=== PATIENT | female | born 1985 | race Caucasian/White ===

== ENCOUNTER 2016-07-31 00:19 | Inpatient (IN) | payer OTHER ==
[2016-07-31] MEDS ORDERED: OLIVE OIL 118 ML BTL ONE (00:38)
[2016-07-31] MEDS ORDERED: AMMONIA AROMATIC 1 EACH AMP IH ONE (00:38)
[2016-07-31] MEDS ORDERED: LIDOCAINE 1% 300 MG/30 ML SDV ONE (00:38)
[2016-07-31] MEDS ORDERED: MISOPROSTOL 200 MCG TAB ONE (00:38)
[2016-07-31] MEDS ORDERED: OXYTOCIN 10 UNIT/ML VIAL ONE (00:38)
[2016-07-31] MEDS ORDERED: TERBUTALINE SULFATE 1 MG/ML VIAL ONE (00:38)
[2016-07-31] MEDS ORDERED: EPSOM SALT 454 GM TP PRN (00:40)
[2016-07-31] MEDS ORDERED: LR 1,000 ML IV PRN (00:40)
[2016-07-31] MEDS ORDERED: OXYTOCIN/RINGERS LACTATE 1,000 ML IV PRN (00:40)
[2016-07-31] MEDS ORDERED: OLIVE OIL 118 ML BTL MISC PRN (00:40)
[2016-07-31] MEDS ORDERED: TERBUTALINE SULFATE 1 MG/ML VIAL IV PRN (00:40)
[2016-07-31 01:17] LABS: % IMMATURE GRANULYOCYTES 0.6 % (0.0-1.1); ABSOLUTE IMMATURE GRANULOCYTES 0.09 10^3/uL (0.00-0.10); ADD DIFF? NO; ADD MORPH? NO; ADD SCAN? NO; ATYPICAL LYMPHOCYTE FLAG 0 (0-99); FRAGMENT RBC FLAG 0 (0-99); HEMATOCRIT 38.8 % (38.0-47.0); HEMOGLOBIN 13.7 g/dL (12.6-16.3); LEFT SHIFT FLG 0 (0-99); LIPEMIA HEMOLYSIS FLAG 90 (0-99); MEAN CELL HEMOGLOBIN 31.4 pg (27.9-34.1); MEAN CELL HEMOGLOBIN CONCENTR. 35.3 g/dL (32.4-36.7); MEAN CELL VOLUME 88.8 fL (81.5-99.8); MEAN PLATELET VOLUME 10.8 fL (8.7-11.7); PLATELET CLUMPS FLAG 0 (0-99); PLATELET COUNT 216 10^3/uL (150-400); RED BLOOD CELL COUNT 4.37 10^6/uL (4.18-5.33); RED CELL DISTRIBUTION WIDTH 12.7 % (11.5-15.2)
[2016-07-31] MEDS ORDERED: fentaNYL 100 MCG/2 ML INJ ONE (01:36)
[2016-07-31] MEDS ORDERED: fentaNYL 2MCG/ML/BUP 0.1% RTU 100 ML BAG EP ONE (01:36)
[2016-07-31] MEDS ORDERED: BUPIVACAINE 0.25% 30 ML SDV ONE (01:36)
[2016-07-31] MEDS ORDERED: PHENYLEPHRINE HCL 100 MCG/ML SYR ONE (01:37)
--- NOTE | 2016-07-31 01:39 | GHP ---
[f rep st] PREOP HISTORY AND PHYSICAL DATE OF ADMISSION: 07/31/2016 ADMITTING DIAGNOSIS: Intrauterine at 39-4/7 weeks gestation with spontaneous labor and sp ontaneous rupture of the membranes. HISTORY OF PRESENT ILLNESS: The patient is a 31-year-old, 1, para 0, with a last menstrual period of 10/22/2015, and an EDC of 08/04/2016, which was set by a 7-week ultrasound. The patient h as had good care at [facility] since registration at 8 weeks, and she has had an uncomplicated course. The patient reports mild bleeding and lose of a mucous plug this aft ernoon. She began having strong contractions at approximately 7:30 p.m. at night, that were increas ing in intensity to every 5 minutes by approximately 9:30 p.m. At 11:40 p.m., she had spontaneous r upture of the membranes for clear fluid, and the contractions had also increased in intensity. Upon evaluation at Labor and Delivery, heart tones are 140s and reactive, she is renee every 4-5 minutes, and her cervix is 4, 90, - 2, and she is grossly ruptured for clear fluid. She will b e admitted for active labor management. OBSTETRICAL HISTORY: The patient has no past obstetrical history. This is her first . PAST GYNECOLOGICAL HISTORY: She has a normal past gynecological history. She had a normal menstrua l triad with menarche at age 15, interval of 30-35 days, length of 4 days. Her left menstrual perio d was 10/22/2015, but ultrasound changed the due date by 6 days. She does have a history of an abno rmal Pap and a colposcopy in 2008. No treatment was done and negative Paps since. No history of an y STDs. 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 PAST SURGICAL HISTORY: Significant for a breast augmentation in 2010. ALLERGIES: She is allergic to sulfa. It gives her chancre sores. MEDICATIONS: Only vitamins. LABORATORY DATA: She is A positive, antibody negative, RPR nonreactive, rubella immune, and hepatit is negative. HIV negative, cystic fibrosis, SMA, and fragile X negative. Pap normal. Gonorrhea an d chlamydia normal. Verifi normal. AFP negative. One-hour GTT 98, and GBS was negative. SOCIAL HISTORY: She is . She lives with her , Damien. She works as a hay farmer. She denies tobacco, alcohol, and drug use. FAMILY HISTORY: Father has chronic hypertension. Maternal grandfather has adult-onset diabetes. S davi has superior mesenteric artery syndrome. Paternal uncle had leukemia. Father had prostate ca ncer. Paternal grandfather and maternal grandmother had lung cancer, and a cousin of breast ca ncer at age 42. The patient has also had recurrent UTIs in this . REVIEW OF SYSTEMS: Significant today for contraction pain, spontaneous rupture of the membranes, bu t she also had an episode of nausea and vomiting upon presentation to Labor and Delivery. Other jailyn n normal labor symptoms, she has a negative review of symptoms. OBJECTIVE: She is afebrile. Vital signs are stable. heart tones 140s. She is renee e very 4-5 minutes. Cervix is 4, 90%, -2. She is grossly ruptured. ASSESSMENT AND PLAN: 31-year-old, 1, para 0, at 39-4/7 weeks gestation with spontaneous lab or for active labor management. The patient desires an epidural for pain control at this time. /[id number]/MODL
[2016-07-31 01:50] LABS: ALANINE AMINOTRANSFERASE 33 IU/L (9-52); ASPARTATE AMINOTRANSFERASE 27 IU/L (14-46); BILIRUBIN,TOTAL 0.6 mg/dL (0.1-1.4); BILIRUBIN-CONJUGATED 0.4 mg/dL (0.0-0.5); BILIRUBIN-UNCONJUGATED 0.2 mg/dL (0.0-1.1); CREATININE 0.7 mg/dL (0.6-1.0); GLOMERULAR FILTRATION RATE > 60; LACTATE DEHYDROGENASE 526 IU/L (313-618); URIC ACID 6.1 mg/dL (2.5-6.8)
[2016-07-31] MEDS ORDERED: METOCLOPRAMIDE 10 MG/2 ML VIAL IVP PRN (02:22)
[2016-07-31] MEDS ORDERED: PHENYLEPHRINE HCL 100 MCG/ML SYR IVP PRN (02:22)
[2016-07-31] MEDS ORDERED: ONDANSETRON 4 MG/2 ML VIAL IVP PRN (02:22)
[2016-07-31] MEDS ORDERED: fentaNYL 2MCG/ML/BUP 0.1% RTU 100 ML EP SCH (02:30)
[2016-07-31] MEDS ORDERED: LR 500 ML IV SCH (02:30)
[2016-07-31] MEDS ORDERED: HYDROCODONE/APAP 5/325 TAB PO PRN (04:03)
[2016-07-31] MEDS ORDERED: HYDROCORTISONE 0.5% CREAM TP PRN (04:03)
[2016-07-31] MEDS ORDERED: SIMETHICONE 80 MG TAB CHEW PO PRN (04:03)
--- NOTE | 2016-07-31 04:09 | OBDEL ---
Info Type: Vaginal GBS+: No Indications for Delivery: Spontaneous Labor Vaginal Delivery - Labor and Delivery Onset of Contractions Date: 07/30/16 Onset of Contractions Time: 19:00 Onset of Contractions Type: Spontaneous Rupture of Membranes Date: 07/30/16 Rupture of Membranes Time: 23:40 Rupture of Membranes Type: Spontaneous Amniotic Fluid Color: Clear Dilation Complete Date: 07/31/16 Dilation Complete Time: 03:21 Placenta Delivery Date: 07/31/16 Placenta Delivery Time: 03:51 Total Hours of Labor: 8 Laceration: 2nd Degree Repair: 3-0, Vicryl Vaginal Sponge Count Correct: Yes Vaginal Needle Count Correct: Yes Vaginal Sweep Performed: Yes EBL: 150 Delivery Events: None - Medications Labor Augmentation/Induction Methods Used: None [place] Delivery Date: 07/31/16 Delivery Time: 03:47 TRENT: 08/04/16 Gestational Age: 39 week(s) and 3 day(s) Sex of : Male Score (1 Min): 8 Score (5 Min): 8 ICD10 Worksheet Patient Problems: Problems Problem Status Onset spontaneous labor with term delivery Acute Active labor at term Acute - ICD10 Problem Qualifiers (1) spontaneous labor with term delivery (2) Active labor at term
[2016-07-31] MEDS: IBUPROFEN 600 MG TAB PO PRN ×3 (05:37→19:04)
[2016-07-31] MEDS: DOCUSATE SODIUM 100 MG CAP PO PRN ×2 (10:45→19:04)
--- NOTE | 2016-07-31 15:16 | OBPP ---
Progress Note Assessment/Plan: Assessment: 31 y/o PPD#1 s/p doing well. Plan: support, routine PPC. 07/31/16 15:16 Subjective: Pt is doing well today. She has min perineal soreness and cramping controlled with Ibuprofen. She is ambulating, voiding and has min lochia. They are working on breast feeding and baby is latching. Objective: 07/31/16 01:00 07/31/16 01:00 Patient ABO/Rh A POSITIVE 07/31/16 01:00 Uric Acid 6.1 mg/dL (2.5-6.8) 07/31/16 01:00 Total Bilirubin 0.6 mg/dL (0.1-1.4) 07/31/16 01:00 Conjugated Bilirubin 0.4 mg/dL (0.0-0.5) 07/31/16 01:00 Unconjugated Bilirubin 0.2 mg/dL (0.0-1.1) 07/31/16 01:00 AST 27 IU/L (14-46) 07/31/16 01:00 ALT 33 IU/L (9-52) 07/31/16 01:00 Lactate Dehydrogenase 526 IU/L (313-618) 07/31/16 01:00 Temp Pulse Resp BP Pulse Ox 36.6 C 76 16 121/74 H 07/31/16 08:00 07/31/16 08:00 07/31/16 08:00 07/31/16 08:00 Uterine Position/Fundal Height: Umbilicus -2 Uterine Tone: Firm Physical Exam - Physical Exam General Appearance: WD/WN, alert, no apparent distress Neck: non-tender, full range of motion, supple Respiratory: chest non-tender, lungs clear, normal breath sounds Cardiac/Chest: regular rate, rhythm Abdomen: normal bowel sounds Extremities: swelling (no), Tyler's sign (neg)
[2016-07-31] MEDS: ACETAMINOPHEN 325 MG TAB PO PRN (23:21)
[2016-08-01] MEDS: IBUPROFEN 600 MG TAB PO PRN ×4 (01:21→20:07)
[2016-08-01] MEDS: ACETAMINOPHEN 325 MG TAB PO PRN ×2 (03:55→13:16)
[2016-08-01] MEDS ORDERED: SUCROSE 1 EA UDL ONE (04:03)
[2016-08-01 09:10] VITALS: O2SAT 95
--- NOTE | 2016-08-01 10:48 | OBPP ---
Progress Note Assessment/Plan: Assessment: well pain well managed vs wnl ff@u scant rubra lochia perineum approximated voiding without difficulty Plan:pp day 1 expectant management 08/01/16 10:46 Subjective: doing well. PAin well managed, well. Voiding without difficulty Objective: 07/31/16 01:00 07/31/16 01:00 Patient ABO/Rh A POSITIVE 07/31/16 01:00 Uric Acid 6.1 mg/dL (2.5-6.8) 07/31/16 01:00 Total Bilirubin 0.6 mg/dL (0.1-1.4) 07/31/16 01:00 Conjugated Bilirubin 0.4 mg/dL (0.0-0.5) 07/31/16 01:00 Unconjugated Bilirubin 0.2 mg/dL (0.0-1.1) 07/31/16 01:00 AST 27 IU/L (14-46) 07/31/16 01:00 ALT 33 IU/L (9-52) 07/31/16 01:00 Lactate Dehydrogenase 526 IU/L (313-618) 07/31/16 01:00 Temp Pulse Resp BP Pulse Ox 36.4 C 63 16 121/74 H 95 08/01/16 09:09 08/01/16 09:09 08/01/16 09:09 08/01/16 09:09 08/01/16 09:09 Uterine Position/Fundal Height: At Umbilicus Uterine Tone: Firm Physical Exam - Physical Exam General Appearance: WD/WN, alert, no apparent distress Abdomen: other (ff@u) Extremities: Tyler's sign (negative bilaterally) DTR- Lower Extremities: Knee (R): 1+, Knee (L): 1+ (no clonus) Skin: normal color, warm/dry Neuro/Psych: no motor/sensory deficits, alert, normal mood/affect, oriented x 3
[2016-08-01] MEDS: DOCUSATE SODIUM 100 MG CAP PO PRN (13:16)
[2016-08-02] MEDS: IBUPROFEN 600 MG TAB PO PRN ×2 (02:21→09:54)
[2016-08-02 09:16] VITALS: BP 130/84; PULSE 66; RESP 17; TEMP 97.6
[2016-08-02] MEDS: DOCUSATE SODIUM 100 MG CAP PO PRN (09:54)
--- NOTE | 2016-08-02 10:46 | OBPP ---
Progress Note Assessment/Plan: Assessment: 31 y/o PPD#3 s/p doing well. Plan: D/c home today with Ibuprofen, APNO cream to nipples. Follow-up @ [facility] 4 and 6 weeks. 07/31/16 15:16 08/02/16 10:45 Subjective: Pt is doing well today. She has good pain control, cramping and perineal pain with Ibuprofen. She has sore and painful nipples and is working on breast feeding. She has min lochia and is ambulating and nursing well. She is ready to d/c home. Objective: 07/31/16 01:00 07/31/16 01:00 Patient ABO/Rh A POSITIVE 07/31/16 01:00 Uric Acid 6.1 mg/dL (2.5-6.8) 07/31/16 01:00 Total Bilirubin 0.6 mg/dL (0.1-1.4) 07/31/16 01:00 Conjugated Bilirubin 0.4 mg/dL (0.0-0.5) 07/31/16 01:00 Unconjugated Bilirubin 0.2 mg/dL (0.0-1.1) 07/31/16 01:00 AST 27 IU/L (14-46) 07/31/16 01:00 ALT 33 IU/L (9-52) 07/31/16 01:00 Lactate Dehydrogenase 526 IU/L (313-618) 07/31/16 01:00 Temp Pulse Resp BP Pulse Ox 36.4 C 66 17 130/84 H 95 08/02/16 09:14 08/02/16 09:14 08/02/16 09:14 08/02/16 09:14 08/02/16 09:14 Uterine Position/Fundal Height: Umbilicus -2 Uterine Tone: Firm Physical Exam - Physical Exam General Appearance: WD/WN, alert, no apparent distress Neck: non-tender, full range of motion, supple Respiratory: chest non-tender, lungs clear, normal breath sounds Cardiac/Chest: regular rate, rhythm Abdomen: normal bowel sounds Extremities: swelling (no), Tyler's sign (neg)
--- NOTE | 2016-08-02 10:52 | OBGCSDC ---
General Delivery Information - General Info : 1 Para: 1 Delivery Physician/CNM: Iram Beasley Admission Date: 07/30/16 Labs: Patient ABO/Rh A POSITIVE 07/31/16 01:00 Hct 38.8 % (38.0-47.0) 07/31/16 01:00 Vaginal - Diagnosis Labor: Spontaneous Rupture of Membranes Type: Spontaneous Amniotic Fluid Color: Clear Laceration: 2nd Degree Repair: 3-0, Vicryl Delivery Events: None - Operations/Procedures L&D Analgesia/Anesthesia Type: Epidural - Hospital Course Antepartum: normal antepartum course Intrapartum: spontaneous labor, epidural AROM, : sore nipples needing APNO cream - Delivery L&D Analgesia/Anesthesia Type: Epidural [place] Data [place] Delivery Date: 07/31/16 Delivery Time: 03:47 TRENT: 08/04/16 Gestational Age: 39 week(s) and 5 day(s) Sex of : Male [place] Weight (gm): 3150 g Score (1 Min): 8 Score (5 Min): 8 Discharge Information - Discharge Information Discharge Medications: Ibuprofen, Other (Specify) (APNO cream) Condition: Good Instruction/Follow Up: Six Weeks Discharge Physician/KENNY: Iram Beasley
== END 2016-08-02 15:35 | disposition home or self-care (01) | DRG 775 ==
LOC: FLD 00:19 → OBSVTOIN 00:19 → FOB 06:28
PROVIDERS: ADMIT Obstetrics & Gynecology; ATTEND Obstetrics & Gynecology
DX: O70.1 Second degree perineal laceration during delivery (principal); Z3A.39 39 weeks gestation of pregnancy; Z37.0 Single live birth
CPT/HCPCS: J2370; J2590; J3010; J3105